=== PATIENT | female | born 1965 | race Hispanic/Latino ===

== ENCOUNTER → 2017-11-16 | Outpatient (CLI) | payer BC, OTHER | LOC: M RAD 09:01 | DX: Z12.31 Encounter for screening mammogram for malignant neoplasm of breast (principal) | CPT/HCPCS: 77067 ==

== ENCOUNTER → 2018-04-04 | Outpatient (REF) | payer OTHER ==
[2018-04-04 13:47] LABS: PTH INTACT < 6.3 PG/ML (18.5-88.0)
== END ==
LOC: M LAB REF 13:13
DX: E83.51 Hypocalcemia (principal)

== ENCOUNTER → 2020-02-25 | Outpatient (REF) | payer OTHER ==
[~2020-02-25] MED LIST: CALC1CAP31 PO; CALC25TA PO; CITRTAB15 PO; CITRTAB18 PO; HYDR-3644 PO; LEVO150T7 PO; LEVO175T PO; LOSA50TA88 PO; MAG400TA PO; MICR10CA PO
== END ==
LOC: M LAB REF 21:49
PROVIDERS: ATTEND Physician Assistant Medical
DX: N39.0 Urinary tract infection, site not specified (principal)

== ENCOUNTER → 2020-09-28 | Outpatient (REF) | payer OTHER ==
[2020-09-30 10:17] LABS: LDL DIRECT 105 mg/dL (0-99); THRYOGLOBULIN ANTIBODIES (ATA) < 1.0 IU/mL (0.0-0.9); THYROGLOBULIN QUANTITATIVE < 0.1 ng/mL (1.5-38.5)
== END ==
LOC: M LAB REF 12:40
PROVIDERS: ATTEND Family Medicine
DX: E11.65 Type 2 diabetes mellitus with hyperglycemia (principal); C73 Malignant neoplasm of thyroid gland

== ENCOUNTER → 2021-10-06 | Outpatient (CLI) | payer BC, OTHER ==
[~2021-10-06] MED LIST changes: +LOSA50TA28 PO; -LOSA50TA88 PO
== END ==
LOC: M WHC 09:09
PROVIDERS: ATTEND Family Medicine
DX: Z12.31 Encounter for screening mammogram for malignant neoplasm of breast (principal)

== ENCOUNTER → 2021-10-29 | Outpatient (REF) | payer BC, OTHER ==
[~2021-10-29] MED LIST changes: +LEVO750T13 PO; +METR-265 PO; +PANT40TA29 PO
== END ==
LOC: M LAB REF 16:18
PROVIDERS: ATTEND Physician Assistant Medical
DX: R10.13 Epigastric pain (principal)

== ENCOUNTER 2021-10-31 15:26 | Emergency (ER) | payer BC, OTHER ==
[~2021-10-31] VITALS: Ht 172.7 cm; Wt 106.1 kg
[~2021-10-31 15:26] MED LIST changes: -LEVO750T13 PO; -METR-265 PO; -PANT40TA29 PO
[2021-10-31] MEDS ORDERED: PANT40TA29 PO (15:41)
[2021-10-31] MEDS: NS 1,000 ML IV SCH ×2 (17:05→19:31)
[2021-10-31] MEDS ORDERED: MORPHINE 4 MG/ML 1ML VIAL/SYRINGE (J2270) IV PRN (17:05)
[2021-10-31] MEDS ORDERED: ONDANSETRON 4MG/2ML VIAL IV ONE (17:05)
[2021-10-31 17:34] LABS: BASO % 0.3 % (0.0-1.0); EOS # 0.1 10^3/uL (0.0-0.5); EOS % 0.8 % (0.0-3.0); HEMATOCRIT 38.4 % (36.0-47.0); HEMOGLOBIN 13.4 g/dl (12.0-15.5); LYMPH # 1.9 10^3/uL (1.5-5.0); LYMPH % 17.9 % (24.0-44.0); MEAN CORPUSCULAR HEMOGLOBIN 30.2 pg (27.0-33.0); MEAN CORPUSCULAR HGB CONC 34.9 g/dl (32.0-36.5); MEAN CORPUSCULAR VOLUME 86.5 fl (80.0-96.0); MONO # 0.9 10^3/uL (0.0-0.8); MONO % 8.7 % (2.0-8.0); NEUTROPHILS # 7.5 10^3/uL (1.5-8.5); NEUTROPHILS % 72.1 % (36.0-66.0); PLATELET COUNT, AUTOMATED 262 10^3/uL (150-450); RED BLOOD COUNT 4.44 10^6/uL (4.00-5.40); WHITE BLOOD COUNT 10.4 10^3/uL (4.0-10.0)
[2021-10-31] MEDS ORDERED: ISOVUE-370 76% 100ML VIAL As Ordered ONE (18:04)
[2021-10-31 18:28] LABS: ALBUMIN 3.6 GM/DL (3.2-5.2); BILIRUBIN,DIRECT 0.2 MG/DL (0.0-0.2); BILIRUBIN,TOTAL 0.8 MG/DL (0.2-1.0); TOTAL PROTEIN 7.6 GM/DL (6.4-8.2)
[2021-10-31 18:55] VITALS: BP 136/61
[2021-10-31] MEDS ORDERED: metroNIDAZOLE (FLAGYL) 500MG TABLET PO ONE (19:15)
[2021-10-31] MEDS ORDERED: LevoFLOXacin 750 MG TABLET PO ONE (19:15)
[2021-10-31] MEDS ORDERED: LEVO750T13 PO (19:20)
[2021-10-31] MEDS ORDERED: METR-265 PO (19:20)
== END 2021-10-31 20:29 | disposition home or self-care (01) ==
LOC: M ED 15:26
DX: K57.92 Diverticulitis of intestine, part unspecified, without perforation or abscess without bleeding (principal); I10 Essential (primary) hypertension; E07.9 Disorder of thyroid, unspecified; Z88.0 Allergy status to penicillin; Z79.899 Other long term (current) drug therapy; Z79.890 Hormone replacement therapy
CPT/HCPCS: 74177; 80047; 80076; 83690; 85025; 96374; 96375; 99284; J2270; J2405; Q9967

== ENCOUNTER → 2021-11-25 | Outpatient (REF) | payer BC, OTHER ==
[~2021-11-25] MED LIST changes: +LEVO750T13 PO; +METR-265 PO; +PANT40TA29 PO
== END ==
LOC: M LAB REF 12:35
PROVIDERS: ATTEND Family Medicine
DX: E83.51 Hypocalcemia (principal)

== ENCOUNTER → 2021-12-30 | Outpatient (REF) | payer OTHER | LOC: M LAB REF 12:10 | PROVIDERS: ATTEND Family Medicine | DX: E83.51 Hypocalcemia (principal) ==

== ENCOUNTER → 2021-12-31 | Outpatient (CLI) | payer BC, OTHER | LOC: M RAD 10:05 | PROVIDERS: ATTEND Internal Medicine Gastroenterology | DX: R10.13 Epigastric pain (principal) | CPT/HCPCS: 78264; A9541 ==

== ENCOUNTER 2022-04-04 06:11 | Emergency (ER) | payer BC, OTHER ==
[~2022-04-04] VITALS: Ht 172.7 cm; Wt 105.3 kg
[~2022-04-04 06:11] MED LIST changes: +LEVO1TAB40 PO; -LEVO750T13 PO
[2022-04-04 06:51] LABS: BASO % 0.2 % (0.0-1.0); EOS # 0.1 10^3/uL (0.0-0.5); EOS % 0.4 % (0.0-3.0); HEMATOCRIT 41.9 % (36.0-47.0); HEMOGLOBIN 14.4 g/dl (12.0-15.5); LYMPH # 1.1 10^3/uL (1.5-5.0); LYMPH % 10.2 % (24.0-44.0); MEAN CORPUSCULAR HEMOGLOBIN 30.3 pg (27.0-33.0); MEAN CORPUSCULAR HGB CONC 34.4 g/dl (32.0-36.5); MONO # 0.9 10^3/uL (0.0-0.8); MONO % 7.9 % (2.0-8.0); NEUTROPHILS % 80.8 % (36.0-66.0); PLATELET COUNT, AUTOMATED 264 10^3/uL (150-450); RED BLOOD COUNT 4.76 10^6/uL (4.00-5.40); WHITE BLOOD COUNT 11.2 10^3/uL (4.0-10.0)
[2022-04-04 07:25] LABS: ALBUMIN 3.8 GM/DL (3.2-5.2); ALT/SGPT 24 U/L (12-78); BILIRUBIN,DIRECT 0.2 MG/DL (0.0-0.2); BILIRUBIN,TOTAL 0.9 MG/DL (0.2-1.0); BLOOD UREA NITROGEN 13 MG/DL (7-18); CALCIUM LEVEL 8.6 MG/DL (8.5-10.1); CARBON DIOXIDE LEVEL 27 MEQ/L (21-32); CHLORIDE LEVEL 101 MEQ/L (98-107); CREATININE FOR GFR 0.81 MG/DL (0.55-1.30); GLOMERULAR FILTRATION RATE > 60.0 (>51); GLUCOSE, FASTING 137 MG/DL (70-100); LIPASE 166 U/L (73-393); POTASSIUM SERUM 4.1 MEQ/L (3.5-5.1); SODIUM LEVEL 136 MEQ/L (136-145); TOTAL PROTEIN 7.9 GM/DL (6.4-8.2)
[2022-04-04] MEDS ORDERED: NS 1,000 ML IV ONE (07:30)
[2022-04-04] MEDS ORDERED: ONDANSETRON 4MG 2ML VIAL IV ONE (07:30)
[2022-04-04 07:49] LABS: BILIRUBIN, URINE MANUAL NEGATIVE (NEGATIVE); GLUCOSE, URINE (UA) MANUAL NEGATIVE (NEGATIVE); KETONE, URINE MANUAL NEGATIVE (NEGATIVE); UROBILINOGEN, URINE MANUAL NORMAL (NORMAL)
[2022-04-04] MEDS: MORPHINE 2 MG/ML 1ML VIAL IV PRN ×2 (07:58→08:49)
[2022-04-04] MEDS ORDERED: ISOVUE-370 76% 100ML VIAL As Ordered ONE (08:24)
[2022-04-04 09:15] VITALS: BP 162/70
[2022-04-04] MEDS ORDERED: metroNIDAZOLE (FLAGYL) 500MG TABLET PO ONE (09:15)
[2022-04-04] MEDS ORDERED: CIPROFLOXACIN 500MG TABLET PO ONE (09:15)
[2022-04-04] MEDS ORDERED: CIPR-249 PO (09:21)
[2022-04-04] MEDS ORDERED: METR-265 PO (09:22)
[2022-04-04] MEDS ORDERED: ONDA4TAB6 PO (09:22)
[2022-04-04] MEDS ORDERED: PERC5TAB12 PO (10:02)
== END 2022-04-04 10:03 | disposition home or self-care (01) ==
LOC: M ED 06:11
DX: K57.32 Diverticulitis of large intestine without perforation or abscess without bleeding (principal); I10 Essential (primary) hypertension; Z79.890 Hormone replacement therapy; Z79.899 Other long term (current) drug therapy; Z88.0 Allergy status to penicillin
CPT/HCPCS: 74178; 80048; 80076; 83690; 85025; 87040; 96361; 96374; 96375; 96376; 99284; J2270; J2405; Q9967

== ENCOUNTER → 2022-04-19 | Outpatient (REF) | payer BC, OTHER ==
[~2022-04-19] MED LIST changes: +CIPR-249 PO; +ONDA4TAB6 PO; +PERC5TAB12 PO
== END ==
LOC: M LAB REF 16:05
PROVIDERS: ATTEND Family Medicine
DX: E83.51 Hypocalcemia (principal); E89.0 Postprocedural hypothyroidism

== ENCOUNTER → 2022-04-21 | Outpatient (REF) | payer BC, OTHER | LOC: M LAB REF 16:41 | PROVIDERS: ATTEND Family Medicine | DX: E83.51 Hypocalcemia (principal) ==

== ENCOUNTER → 2022-05-27 | Outpatient (CLI) | payer BC, OTHER ==
[~2022-05-27] MED LIST changes: +GASTROGRAFIN SOLUTION 30ML (Q9963) As Ordered ONE; +ISOVUE-370 76% 100ML VIAL As Ordered ONE
== END ==
LOC: M RAD 14:25
PROVIDERS: ATTEND Physician Assistant
DX: R10.32 Left lower quadrant pain (principal); K57.50 Diverticulosis of both small and large intestine without perforation or abscess without bleeding; M47.9 Spondylosis, unspecified
CPT/HCPCS: 74177; Q9963; Q9967

== ENCOUNTER → 2023-01-06 | Outpatient (REF) | payer BC, OTHER ==
[~2023-01-06] MED LIST changes: -GASTROGRAFIN SOLUTION 30ML (Q9963) As Ordered ONE; -ISOVUE-370 76% 100ML VIAL As Ordered ONE
== END ==
LOC: M LAB REF 16:39
PROVIDERS: ATTEND Family Medicine
DX: E83.51 Hypocalcemia (principal)

== ENCOUNTER → 2023-06-20 | Outpatient (CLI) | payer BC, OTHER | LOC: M WHC 08:23 | PROVIDERS: ATTEND Obstetrics & Gynecology | DX: Z12.31 Encounter for screening mammogram for malignant neoplasm of breast (principal); Z13.820 Encounter for screening for osteoporosis ==

== ENCOUNTER → 2023-06-30 | Outpatient (REF) | payer OTHER ==
[2023-06-30 16:47] LABS: IONIZED CALCIUM 4.8 MG/DL (4.5-5.3)
== END ==
LOC: M LAB REF 16:28
PROVIDERS: ATTEND Family Medicine
DX: R10.11 Right upper quadrant pain (principal); E11.40 Type 2 diabetes mellitus with diabetic neuropathy, unspecified; E83.51 Hypocalcemia

== ENCOUNTER → 2023-09-12 | Outpatient (REF) | payer OTHER | LOC: M LAB REF 12:54 | PROVIDERS: ATTEND Nurse Practitioner Family | DX: R20.2 Paresthesia of skin (principal) ==

== ENCOUNTER → 2023-10-03 | Outpatient (CLI) | payer BC, OTHER | LOC: M PLAIMG 13:30 | PROVIDERS: ATTEND Nurse Practitioner Family | DX: R90.82 White matter disease, unspecified (principal); G43.101 Migraine with aura, not intractable, with status migrainosus ==

== ENCOUNTER → 2024-03-04 | Outpatient (REF) | payer OTHER, BC ==
[~2024-03-04] MED LIST changes: +ONDA-282 PO; -ONDA4TAB6 PO
[2024-03-04 17:44] LABS: PTH INTACT < 6.3 PG/ML (18.5-88.0)
== END ==
LOC: M LAB REF 16:21
PROVIDERS: ATTEND Family Medicine
DX: E83.52 Hypercalcemia (principal)

== ENCOUNTER → 2024-06-04 | Outpatient (REF) | payer OTHER | LOC: M LAB REF 12:55 | PROVIDERS: ATTEND Family Medicine | DX: E83.52 Hypercalcemia (principal) ==

== ENCOUNTER → 2024-06-06 | Outpatient (REF) | payer OTHER | LOC: M LAB REF 12:35 | PROVIDERS: ATTEND Family Medicine | DX: E83.52 Hypercalcemia (principal) ==

== ENCOUNTER → 2024-06-27 | Outpatient (CLI) | payer BC | LOC: M WHC 08:43 | PROVIDERS: ATTEND Obstetrics & Gynecology | DX: Z12.31 Encounter for screening mammogram for malignant neoplasm of breast (principal); R92.323 Mammographic fibroglandular density, bilateral breasts ==

== ENCOUNTER 2024-07-19 17:23 | Inpatient (IN) | payer BC, OTHER ==
[~2024-07-19] VITALS: Ht 172.7 cm; Wt 89.4 kg
[~2024-07-19 17:23] MED LIST changes: -AMLO1TAB24 PO; -ATOR1TAB19 PO; -LEVO125T4 PO; -SUMA50TA2 PO
[2024-07-19] MEDS: NS 1,000 ML IV SCH ×2 (18:26→22:32)
[2024-07-19 18:37] LABS: HEMATOCRIT 32.5 % (36.0-47.0); HEMOGLOBIN 11.2 g/dl (12.0-15.5); MEAN CORPUSCULAR HEMOGLOBIN 28.9 pg (27.0-33.0); MEAN CORPUSCULAR HGB CONC 34.5 g/dl (32.0-36.5); PLATELET COUNT, AUTOMATED 286 10^3/uL (150-450); RED BLOOD COUNT 3.87 10^6/uL (4.00-5.40); WHITE BLOOD COUNT 8.4 10^3/uL (4.0-10.0)
[2024-07-19 18:44] LABS: LIPASE 50 U/L (12-53)
[2024-07-19 18:51] LABS: ALBUMIN 3.8 G/DL (3.2-5.2); ALKALINE PHOSPHATASE 71 U/L (35-104); ALT/SGPT 20 U/L (7.0-40); AST/SGOT 11 U/L (<34); BILIRUBIN,DIRECT 0.2 MG/DL (<0.4); BILIRUBIN,TOTAL 0.8 MG/DL (0.3-1.2); BLOOD UREA NITROGEN 30 MG/DL (9-23); CALCIUM LEVEL 14.9 MG/DL (8.5-10.1); CARBON DIOXIDE LEVEL 30 MMOL/L (20-31); CHLORIDE LEVEL 99 MMOL/L (98-107); CREATININE FOR GFR 2.15 MG/DL (0.55-1.30); FREE T4 1.65 NG/DL (0.89-1.76); GLOMERULAR FILTRATION RATE 25.2 (>51); GLUCOSE, FASTING 107 MG/DL (60-100); POTASSIUM SERUM 3.2 MMOL/L (3.5-5.1); PTH INTACT < 6.3 PG/ML (18.5-88.0); SODIUM LEVEL 137 MMOL/L (136-145); THYROID STIMULATING HORMONE 0.561 uIU/ML (0.55-4.78); TOTAL 25(OH) VITAMIN D 36.5 NG/ML (20.0-100.0)
[2024-07-19 19:26] LABS: MAGNESIUM LEVEL 1.8 MG/DL (1.8-2.4)
[2024-07-19] MEDS ORDERED: LEVO125T4 PO (19:37)
[2024-07-19] MEDS ORDERED: ATOR1TAB19 PO (19:37)
[2024-07-19] MEDS ORDERED: AMLO1TAB24 PO (19:37)
[2024-07-19] MEDS ORDERED: SUMA50TA2 PO (19:37)
[2024-07-19] MEDS ORDERED: HOME MED LIST COMPLETE! XX SCH (19:40)
[2024-07-19] MEDS ORDERED: ACETAMINOPHEN 325 MG TAB PO PRN (20:50)
[2024-07-19 22:00] VITALS: BP 180/84; TEMP 97.9; O2SAT 96
[2024-07-19 22:20] LABS: ALBUMIN 3.6 G/DL (3.2-5.2); CALCIUM LEVEL 13.7 MG/DL (8.5-10.1); CREATININE FOR GFR 2.03 MG/DL (0.55-1.30); PHOSPHORUS LEVEL 3.3 MG/DL (2.5-4.9); POTASSIUM SERUM 3.3 MMOL/L (3.5-5.1)
[2024-07-20] MEDS: POTASSIUM CHLORIDE 10MEQ SR TABLET PO ONE (01:44)
[2024-07-20 04:00] VITALS: BP 135/88; TEMP 97.5; O2SAT 99
[2024-07-20] MEDS: LEVOTHYROXINE 125MCG TABLET (0.125MG) PO SCH (05:52)
[2024-07-20 06:28] LABS: ALBUMIN 3.3 G/DL (3.2-5.2); CALCIUM LEVEL 12.2 MG/DL (8.5-10.1); CREATININE FOR GFR 2.03 MG/DL (0.55-1.30); PHOSPHORUS LEVEL 3.1 MG/DL (2.5-4.9)
[2024-07-20] MEDS: amLODIPine 5 MG TAB PO SCH (08:57)
[2024-07-20] MEDS: ENOXAPARIN 30MG/0.3ML SYRINGE (J1650 PER 10MG) SC SCH (09:00)
[2024-07-20 12:00] VITALS: BP 150/75; TEMP 97.9; O2SAT 97
[2024-07-20 13:39] LABS: ALBUMIN 3.5 G/DL (3.2-5.2); CALCIUM LEVEL 11.7 MG/DL (8.5-10.1); CREATININE FOR GFR 1.92 MG/DL (0.55-1.30); GLOMERULAR FILTRATION RATE 28.8 (>51); PHOSPHORUS LEVEL 2.6 MG/DL (2.5-4.9); POTASSIUM SERUM 3.8 MMOL/L (3.5-5.1)
[2024-07-20 20:00] VITALS: BP 150/71; TEMP 97.8; O2SAT 98
[2024-07-21] VITALS: BP 152/71; TEMP 97.8; O2SAT 98
[2024-07-21 04:00] VITALS: BP 152/72; TEMP 97.5; O2SAT 95
[2024-07-21] MEDS: HEPARIN SOD (PORCINE) 5000UNITS/ML 1ML VIAL/SYRINGE SQ SCH (05:24)
[2024-07-21 06:33] LABS: IONIZED CALCIUM 5.5 MG/DL (4.5-5.3)
[2024-07-21 06:48] LABS: HEMATOCRIT 27.3 % (36.0-47.0); MEAN CORPUSCULAR HEMOGLOBIN 29.4 pg (27.0-33.0); MEAN CORPUSCULAR HGB CONC 33.7 g/dl (32.0-36.5); MEAN CORPUSCULAR VOLUME 87.2 fl (80.0-96.0); PLATELET COUNT, AUTOMATED 201 10^3/uL (150-450); RED BLOOD COUNT 3.13 10^6/uL (4.00-5.40); WHITE BLOOD COUNT 4.8 10^3/uL (4.0-10.0)
[2024-07-21 06:49] LABS: HEMOGLOBIN 9.2 g/dl (12.0-15.5)
[2024-07-21 07:19] LABS: CALCIUM LEVEL 10.2 MG/DL (8.5-10.1); CREATININE FOR GFR 1.87 MG/DL (0.55-1.30); GLOMERULAR FILTRATION RATE 29.7 (>51); MAGNESIUM LEVEL 1.6 MG/DL (1.8-2.4)
[2024-07-21 08:26] VITALS: BP 156/74
[2024-07-21] MEDS ORDERED: SUMAtriptan SUCCINATE 25 MG TAB PO PRN (08:45)
[2024-07-21] MEDS: ATORVASTATIN 10 MG TAB PO SCH (09:38)
[2024-07-21 13:47] LABS: CALCIUM LEVEL 10.4 MG/DL (8.5-10.1); CREATININE FOR GFR 1.79 MG/DL (0.55-1.30); GLOMERULAR FILTRATION RATE 31.2 (>51); POTASSIUM SERUM 3.6 MMOL/L (3.5-5.1)
[2024-07-22 12:02] LABS: PROTEIN CREATININE RATIO 342 mg/g creat (24-184); T PROTEIN CREATININE RATIO 0.342 (0.024-0.184); UPEP CREATININE 38 mg/dL (20-275); UPEP TOTAL PROTEIN 13 mg/dL (5-24)
[2024-07-23 07:12] LABS: UPEP ALBUMIN 40 %; URINE ALPHA 1 GLOBULIN 12 %; URINE ALPHA 2 GLOBULIN 19 %; URINE BETA GLOBULIN 13 %; URINE GAMMA GLOBULIN 16 %
[2024-07-23 11:12] LABS: ALBUMIN SO 3.8 g/dL (3.8-4.8); ALPHA 1 GLOBULINS SO 0.3 g/dL (0.2-0.3); ALPHA 2 GLOBULINS SO 0.7 g/dL (0.5-0.9); BETA 2 GLOBULIN SO 0.4 g/dL (0.2-0.5); BETA GLOBULIN SO 0.4 g/dL (0.4-0.6); GAMMA GLOBULINS SO 1.4 g/dL (0.8-1.7)
== END 2024-07-21 14:20 | disposition home or self-care (01) | DRG 469 ==
LOC: M ED 17:23 → M ED INP 20:48 → M MSPAV 21:53
PROVIDERS: ADMIT Student in an Organized Health Care Education/Training Program; ATTEND Internal Medicine
DX: N17.9 Acute kidney failure, unspecified (principal); E83.52 Hypercalcemia; I10 Essential (primary) hypertension; Z85.850 Personal history of malignant neoplasm of thyroid; Z92.3 Personal history of irradiation; E78.5 Hyperlipidemia, unspecified; Z79.899 Other long term (current) drug therapy; Z88.0 Allergy status to penicillin; E89.0 Postprocedural hypothyroidism; G43.909 Migraine, unspecified, not intractable, without status migrainosus; Z87.891 Personal history of nicotine dependence

== ENCOUNTER → 2024-07-19 | Outpatient (REF) | payer BC, OTHER ==
[~2024-07-19] MED LIST changes: +AMLO1TAB24 PO; +ATOR1TAB19 PO; +LEVO125T4 PO; +SUMA50TA2 PO
[2024-07-19 13:31] LABS: IONIZED CALCIUM 7.1 MG/DL (4.5-5.3)
[2024-07-19 14:27] LABS: FERRITIN 345.7 NG/ML (7.3-270.7)
[2024-07-19 14:28] LABS: PERCENT SATURATION 21.1 % (13.2-45.0)
[2024-07-19 14:29] LABS: FOLATE 14.1 NG/ML (>5.4)
== END ==
LOC: M LAB REF 12:17
PROVIDERS: ATTEND Family Medicine
DX: R20.2 Paresthesia of skin (principal); E83.52 Hypercalcemia